=== PATIENT | male | born 1980 | race Two or more races ===

== ENCOUNTER 2020-08-26 17:57 | Emergency (ER) | payer OTHER ==
[~2020-08-26] VITALS: Ht 185.4 cm; Wt 88.5 kg
[2020-08-26 18:00] VITALS: BP 124/90
--- NOTE | 2020-08-26 18:00 | NUR ---
ED Nurse Note: Pt came in to ED escorted by [employer] for medical clearance, is AOx3, calm and cooperative, pt complains of R sided neck pain; denies any trauma/recent injury. Pt's VSS, on RA.
[2020-08-26] MEDS ORDERED: Methocarbamol 750mg tab ORAL ONE (18:15)
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
--- NOTE | 2020-08-26 18:51 | Diagnostic Imaging Report ---
EXAM: CT Cervical Spine Without Intravenous Contrast CLINICAL HISTORY: TRAUMA TECHNIQUE: Axial computed tomography images of the cervical spine without intravenous contrast. CTDI is 19.9 mGy and DLP is 545.1 mGy-cm. One or more of the following dose reduction techniques were used: automated exposure control, adjustment of the mA and/or kV according to patient size, use of iterative reconstruction technique. Coronal and sagittal reformatted images were created and reviewed. Axial reformatted images were created and reviewed. COMPARISON: No relevant prior studies available. FINDINGS: Vertebrae: No acute traumatic cervical spine injury. Spine straightening could represent patient positioning or muscle spasm. Discs/spinal canal/neural foramina: No acute findings. No spinal canal stenosis. Soft tissues: Unremarkable. Other findings: Left likely grade III AC joint injury of uncertain chronicity, not well evaluated on this study. IMPRESSION: 1. No acute traumatic cervical spine injury. 2. Spine straightening could represent patient positioning or muscle spasm. 3. Left likely grade III AC joint injury of uncertain chronicity, not well evaluated on this study.
[2020-08-26] MEDS ORDERED: LIDODERM700 M1 TOPIC (18:55)
[2020-08-26] MEDS ORDERED: IBUPROFEN600 M1 ORAL (18:55)
[2020-08-26] MEDS ORDERED: ROBAXIN-500MG ORAL (18:55)
[2020-08-26 19:05] VITALS: BP 130/92
--- NOTE | 2020-08-26 19:05 | NUR ---
ER DISCHARGE NOTE: Patient is cleared to be discharged per ERMD, pt is aox4, on room air, with stable vital signs. pt was given dc and prescription instructions, pt was able to verbalize understanding, pt id band removed. pt is able to ambulate with steady gait. pt took all belongings.
== END 2020-08-26 19:05 ==
LOC: EDBD 17:57 → EMR 18:56
DX: S16.1XXA Strain of muscle, fascia and tendon at neck level, initial encounter (principal); Y04.2XXA Assault by strike against or bumped into by another person, initial encounter; Y92.149 Unspecified place in prison as the place of occurrence of the external cause; Z02.89 Encounter for other administrative examinations
CPT/HCPCS: 72125; 99284